=== PATIENT | female | born 2000 ===

== ENCOUNTER 2024-09-23 21:54 | Emergency (ER) | payer OTHER, SELFPAY ==
[2024-09-23 22:00] VITALS: BP 132/75; PULSE 98; RESP 16; TEMP 36.6; O2SAT 99; BMI 27.2
[2024-09-23] MEDS: ONDANSETRON 2 MG/ML inj 4 MG IVP (23:03)
--- OUTSIDE RECORDS SUMMARY | 2024-09-23 23:06 | XMS_ITS | Patient Health Record ---
Author Organization [facility] Address [address] [address] Support Name Relationship Address Phone LISA SHERWOOD Guarantor Unknown [phone] Reason For Referral No Information Problems Problem Type SNOMED Code ICD Code Onset Dates Problem Status W/U Status Risk Notes Problem Acute sinusitis (disorder) (42976116) Other acute sinusitis (J01.80) 11/11/2016 Active confirmed Plan Of Treatment No Information Insurance Providers Payer Name Payer Address Payer Phone Subscriber Number Group Number Insured Name Patient Relationship to Insured Coverage Start Date Coverage End Date [facility] [address] [address] [place] [id number] KRISTAL SHERWOOD Other
--- OUTSIDE RECORDS SUMMARY | 2024-09-23 23:06 | XMS_ITS | Clinical Summary ---
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 for Telephone Visit. Patient talking easily and coherently in full sentences with no labored breathing ASSESSMENT/PLAN: ICD-10-CM 1. Encounter for supervision of other normal , first trimester (HC) Z34.81 ANTI HIV 1/2 CBC W PLT NO DIFF HBSAG (HBS) ANTI HCV RUBELLA IMMUNE STATUS TREPONEMA PALLIDUM TYPE & SCREEN URINE CULTURE HEMOGLOBIN A1C US OB ANY TRI TV PRO-BNP BASIC METABOLIC PANEL MAGNESIUM TSH 2. Encounter for screening for uncertain dates (HC) Z36.87 3. Heart beat abnormality R00.9 AMB CONSULT TO PRIMARY CARE Patient's BMI 28. Recommended wt gain in lbs: 15-25. --Resources will be given to patient at next visit. Discussed Oxtex brina available for download to smart phone or tablet. --Reviewed topics including diet, exercise, caffeine intake, handling of cat litter, toxic substances, daily vitamins, safe medications, child classes, and regular exams. --Discussed genetic screening options - considering and advised to check coverage. --Discussed care with [facility] and [facility]. Plan to schedule ultrasound at 8 weeks and Initial OB visit with MD at 12 weeks gestation. She was encouraged to call the office with any questions or concerns. Hgb Electrophoresis is not ordered. Pt's ethnicity is / . Baseline preeclampsia labs are not indicated Medications: ASA for preeclampsia prophylaxis is not indicated Start 81 mg ASA daily at 12-28 weeks High Risk (if patient has any one of these risk factors) -none Moderate risk (consider if patient has several of these) -none Early a1c is indicated Early 1hr Glucose testing criteria Test to be completed between 10-16wks if BMI >25 or >23 in Americans AND have one or more of the following risk factors --High risk or ethnicity (, ) Dianna Echeverria NP .................... 08/01/2024 9:44 AM As the provider for this telephone service, I attest that I introduced myself to the patient, provided my credentials, disclosed my location, and determine that based on a review of the patient's chart and/or discussion with members of the patient's treatment team, a telephone visit is an appropriate and effective means of providing this service. The patient and I mutually agree that this visit is appropriate for the telephone as well. Originating site: Pt in [place] [facility] Telephone start time: 9:44 AM Telephone end time: 10:35 AM Last Filed Vital Signs Vital Sign Reading Time Taken Comments Blood Pressure 100/54 08/23/2024 10:55 AM CDT Pulse 80 08/23/2024 10:55 AM CDT Temperature 37.2 C (98.9 F) 06/26/2024 4:25 PM CDT Respiratory Rate 16 06/26/2024 4:25 PM CDT Oxygen Saturation 99% 08/23/2024 10:55 AM CDT Inhaled Oxygen Concentration - - Weight 77.1 kg (170 lb) 08/23/2024 10:55 AM CDT Height 162.6 cm (5' 4) 08/23/2024 10:55 AM CDT Body Mass Index 29.18 08/23/2024 10:55 AM CDT Plan of Treatment Upcoming Encounters Date Type Department Care Team (Late st Contact Info) Description 09/27/2024 9:00 AM CDT Office Visit [facility] Viviana [address] [facility] [address] [place] [id number] Evette Cummings PA [address] [facility] [address] [place] [id number] 09/29/2024 11:30 AM CDT OB Encounter [facility] [address] [facility] [address] [place] [address] Zachary Cuadra MD [address] [place] [address] 10/10/2024 11:30 AM CDT Telemedicine [facility] [address] [place], [place] [phone] [place] [address] [place] [address] Health Maintenance Due Date Last Done Comments HPV series for age 9-26 (2 - 3-dose series) 04/25/2020 03/28/2020 COVID-19 vaccine series ( - season) 2023 03/02/2023, 05/29/2020 Influenza Vaccine (#1) 2024 , 12/04/2021, 01/19/2021, Additional history exists RSV vaccine for adults or (1 - Risk 1-dose series) 01/26/2025 Depression screening for age 12+ 08/18/2025 08/18/2024, 06/21/2024, 05/24/2024, Additional history exists BMI (ht and wt on same day) for age 18+ 08/23/2025 08/23/2024, 06/16/2024, 03/30/2023, Additional history exists Pap test for age 21-65 11/06/2025 11/06/2022 Tetanus booster 02/18/2033 02/18/2023, 01/30, 08/13/2016, Additional history exists Hepatitis B series for 19+ Completed 04/05, 12/27/2018, 10/09/2016, Additional history exists HIV for age 15-65 Completed 10/23/2022, , 05/12/2018, Additional history exists Hepatitis C screening for age 18-79 Completed 10/23/2022, 2019, 11/04/2017 Pneumococcal series for age 6-49 Aged Out No longer eligible based on patient's age to complete this topic Procedures Procedure Name Priority Date/Time Associated Diagnosis Comments US OB ANY TRI TV Routine 08/18/2024 3:00 PM CDT Encounter for supervision of other normal , first trimester (HC) COVID/FLU/RSV PANEL Routine 06/26/2024 5 :05 PM CDT Sore throat STREP A PCR Routine 06/26/2024 4:32 PM CDT Sore throat THROAT RAPID STREP ONLY CLINIC Routine 06/26/2024 4:32 PM CDT Sore throat AUTOMATIC EDGER THIN PREP PAP SCREEN IMAGED Routine 11/06/2022 2:15 PM CDT Cervical cancer screening LC HIV-1/O/2, 4TH GENERATION Routine 10/23/2022 3:35 PM CDT Supervision of other normal , antepartum (HC) LC HCV ANTIBODY RFX TO QUANT PCR Routine 10/23/2022 3:35 PM CDT Supervision of other normal , antepartum (HC) from Last 3 Months or Most Recently Relevant to Health Maintenance Results * US OB ANY TRI TV (08/18/2024 3:00 PM CDT) Anatomical Region Laterality Modality , 2or 3 TRIMESTER, 1ST TRIMESTER Ultrasound Impressions 08/20/2024 11:32 AM CDT Flores intrauterine with cardiac activity. Ultrasound EDC is 03/27/25 with a gestational age of 8 weeks 3 days. No adnexal masses are seen. Leni Sullivan MD 08/20/2024 11:31 AM [facility] [address] [id number] Narrative 08/20/2024 11:32 AM CDT For Patients: Results are automatically released to your Face to Face Live (Sayah) account once available, in compliance with federal regulations. This means that you may see your results before your provider has had a chance to review them. Please allow 2-3 business days for your provider to comment on the results. Date of last menstrual period: 06/16/2024 with estimated date of confinement of 03/23/2025 and expected gestational age of 9 weeks 0 days. Early Ultrasound Date of exam: 08/18/2024 Indication for exam: Encounter for supervision of other normal , first trimester (HC) Requesting Provider: Dianna Echeverria NP TECHNIQUE: Transabdominal scan was not performed. Transvaginal scan was performed. FINDINGS: The uterus is normal size. The myometrium is homogeneous. There are no myomas noted. The right ovary is normal in appearance. The left ovary is normal in appearance. Free fluid in the cul de sac: none There is a single, intrauterine . The crown-rump length is 1.8 cm. These measurements correspond to a 8 week 3 day gestation with an EDC of 03/27/2025. The yolk sac is identified, appears normal, and measures 2 mm. heart activity is present with a rate of 160 beats per minute. Dianna Echeverria MOP WORKER US Final Result * COVID/FLU/RSV PANEL (06/26/2024 5:05 PM CDT) COVID 19 [employer] MOLECULAR Negative Negative 06/26/2024 11:16 PM CDT [facility] Comment:All PCR tests are fletcher bject to false negative result due to variability in viral load and collection technique. A negative result does not rule out a SARS-CoV-2 infection. Clinical correlation required. INFLUENZA A PCR Negative 11:16 PM CDT [facility] INFLUENZA B PCR Negative 11:16 PM CDT [facility] Respiratory Syncytial Virus Negative 06/26/2024 11:16 PM CDT [facility] Swab NASOPHARYNGEAL SWAB / Unknown Non-Blood / Unknown 06/26/2024 5:05 PM CDT 06/26/2024 5:05 PM CDT Roque Vela MD MICROBIOLOGY Final Resul t Performing Organization Address City/[facility]/ZIP Co de Phone Number [facility] [address] [place] [address], [place] * STREP A PCR (06/26/2024 4:32 PM CDT) Pathologist [facility] GROUP A STREP Negative 06/27/2024 12:19 AM CDT [facility] Throat SPECIMEN FROM THROAT / Unknown Non-Blood / Unknown 06/26/2024 4:32 PM CDT 06/26/2024 4:32 PM CDT Roque Vela MD MICROBIOLOGY Final Resul t Performing Organization Address [facility] Co de Phone Number [facility] [address] [place] [address], [place] * POCT Throat Rapid Strep (06/26/2024 4:32 PM CDT) Pathologist [facility] POC, GROUP A STREP NOT DETECTED NOT DETECTED [facility] ( Comment: The [place] [employer] Pediatric[employer] recommends that a throat culture be performed if a rapid group A streptococcus assay yields a negative result. [employer] recommends Streptococcus, Group A culture. Throat SPECIMEN FROM THROAT / Unknown 06/26/2024 4:32 PM CDT 06/26/2024 4:33 PM CDT Roque Vela MD MICROBIOLOGY Final Resul t Performing Organization Address City/[facility] Co de Phone Number [facility] [address] [place] [address], [place] [facility] ( [address] [place] [address] * AUTOMATIC EDGER THIN PREP PAP SCREEN IMAGED (11/06/2022 2:15 PM CDT) Pathologist [facility] Case Report Gynecologic Cytology Report Case: [id number] Authorizing Provider: Zachary Cuadra Collected: 11/06/2022 Jermaine Rojas MD Ordering Location: [facility] Received: 11/06/2022 1520 First Screen: Yasir Warner Specimen: AUTOMATIC EDGER ThinPrep Vial Screening, Cervical 11/11/2022 12:52 PM CDT [facility] [employer] [facility] INTERPRETATION/ RESULT NEGATIVE FOR INTRAEPITHELIAL LESION OR MALIGNANCY (NIL) (none) 11/11/2022 12:52 PM CDT [facility] [employer] [facility] at 1252 CDT SPECIMEN ADEQUACY Satisfactory for evaluation Endocervical component present 11/11/2022 12:52 PM CDT [facility] Date of LMP N/A 11/11/2022 12:52 PM CDT [facility] [employer] [facility] Last Pap Date N/A 11/11/2022 12:52 PM CDT [facility] [employer] LABORATORY-[facility] ENTRAL LABORATORY Last Pap Result First Pap/Unknown 12:52 PM CDT [facility] [employer] [facility] Abnormal Pap or [place] Bx in last 5 years No 11/11/2022 12:52 PM CDT [facility] [employer] [facility] Menstrual Status 11/11/2022 12:52 PM CDT [facility] [employer] [facility] EN[facility]AL [facility] [place] Bx Done Today No 11/11/2022 12:52 PM CDT [facility] [employer] [facility] EN[facility] Additional Information None given 11/11/2022 12:52 PM CDT [facility] [employer] [facility] Comment: Cytology is screened at [facility], Central Laboratory - [address], [place] [address] and [facility] - [address], [place] [address] and [facility] - [address] [place] [address] Interpreted at [facility] [employer] [facility], Central Laboratory - [address], [place] [address] Automated Review Successful 11/11/2022 12:52 PM CDT [facility] [employer] [facility] EN[facility] Comment:Specimen processed s uccessfully by automated prospect manager device, ThinPrep Imaging System, [employer] Note The pap test is a screening technique, not a diagnostic procedure. It is used primarily to screen for squamous cancers and precursor lesions. Published studies have shown that it is subject to both false negative and false positive results. The pap test should not be used as the sole means to diagnose or exclude pre-malignant and malignant lesions. 11/11/2022 12:52 PM CDT [facility]-C ENTRAL LABORATORY Other (Cervical) Non-Blood / Unknown 11/06/2022 2:15 PM CDT 11/06/2022 3:20 PM CDT Zachary Cuadra MD PATHOLOGY/CYTOLO GY Final Result [facility] [address] [place] [address], [place] * LC HCV ANTIBODY RFX TO QUANT PCR (10/23/2022 3:35 PM CDT) HCV Ab Non Reactive Non Reactive 10/27/2022 11:10 AM CDT [facility] ([facility]) Blood BLOOD SPECIMEN / Unknown Venipuncture / Unknown 10/23/2022 3:35 PM CDT 10/23/2022 3:40 PM CDT Narrative [facility] ([facility]) - 10/27/2022 11:10 AM CDT Performed at: [address] [place] [id number] Cathode Ray Tube Assembler: Dwayne Christopher MD, Phone: [phone] us Mary Esposito NP LABORATORY Final Res ult [facility] ([facility]) [address] [place] [address], * LC HIV-1/O/2, 4TH GENERATION (10/23/2022 3:35 PM CDT) HIV Scr 4th Gen Non Reactive Non Reactive 10/27/2022 10:06 PM CDT [facility] ([facility]) Comment: HIV Negative HIV-1/HIV-2 antibodies and HIV-1 p24 antigen were NOT detected. There is no laboratory evidence of HIV infection. Blood BLOOD SPECIMEN / Unknown Venipuncture / Unknown 10/23/2022 3:35 PM CDT 10/23/2022 3:40 PM CDT Narrative [facility] ([facility]) - 10/27/2022 10:06 PM CDT Performed at: [address] [id number] Cathode Ray Tube Assembler: Dwayne Christopher MD, Phone: [phone] us Mary Esposito NP LABORATORY Final Res ult [facility] ([facility]) [facility] [place] [address], from Last 3 Months or Most Recently Relevant to Health Maintenance Insurance [facility] PRIME Advance Directives * Full Code (Latest Code Status on File) Date Activated Date Inactivated Comments 04/22/2023 5:47 PM 04/24/2023 5:25 PM Question Answer Comments Code Status Discussion: Not Discussed * Full Code Date Activated Date Inactivated Comments 05/11/2018 11:45 PM 05/14/2018 4:31 PM Care Teams It Application Support Analyst Relationship Specialty Start [place] [address] [place] [address] PCP - General Physician [facility] Steward 05/14/20
--- OUTSIDE RECORDS SUMMARY | 2024-09-23 23:06 | XMS_ITS | Clinical Summary ---
Author Organization [facility] Address [address] [place] [address] Care Team Providers Care Special Duty Nurse Name Role Phone Unavailable Primary Care Provider Unavailabl e Allergies No known active allergies Medications buPROPion XL (Wellbutrin XL) 150 mg 24 hr tablet Take 150 mg by mouth in the morning. 08/06/2022 Active FLUoxetine (PROzac) 40 mg capsule Take 80 mg by mouth in the morning. 08/06/2022 Active LORazepam (Ativan) 0.5 mg tablet Take by mouth if needed in the morning and at bedtime. 08/06/2022 Active omeprazole OTC (PriLOSEC OTC) 20 mg EC tablet Take 20 mg by mouth in the morning. 08/06/2022 Active albuterol 90 mcg/actuation inhalerIndicatio ns:Acute bronchitis, unspecified organism Inhale 2 puffs every 4 (four) hours if needed for wheezing. 6.7 g 1 01/30/2023 Active Active Problems Problem Noted Date Diagnosed Date Anxiety and depression 06/23/2019 Insomnia, idiopathic 06/23/2019 Social History Tobacco Use Types Packs/Day Years Used Date Smoking Tobacco: Former Cigarettes Smokeless Tobacco: Never Tobacco Cessation:Counseling Given: Not Answered Comments Unknown Sex and Gender Information Value Date Recorded Sex Assigned at Not on file Legal Sex Female 7:03 PM CDT Gender Identity Not on file Sexual Orientation Not on file Plan of Treatment Health Maintenance Due Date Last Done Comments RSV Vaccines (1 - 1-dose 75+ series) 2074 Pneumococcal Vaccine: Pediat rics (0 to 5 Years) and At-Risk Patients (6 to 49 Years) Aged Out No longer eligi ble based on patient's age to complete this topic
--- NOTE | 2024-09-23 23:56 | ED_ITS ---
HPI - General Adult General Date Seen: 09/23/24 <Dianna Coleman MD - Last Filed: 09/25/24 16:06> Chief complaint: Headache/Migraine <Dianna Coleman MD - Last Filed: 09/25/24 16:06> Stated complaint: 14wks , migraine <Dianna Coleman MD - Last Filed: 09/25/24 16:06> Time Seen by Provider: 09/23/24 21:55 <Dianna Coleman MD - Last Filed: 09/25/24 16:06> History of Present Illness HPI narrative: Patient is a 24-year-old here for evaluation of headache and vomiting. She is 14 weeks . Her life has been complicated over the past few weeks because her was diagnosed with an enterovirus infection, was hospitalized with pneumonia and meningitis for a couple of weeks. He got home from the hospital about a week ago. She says she has always had a lot of problems with nausea and vomiting in her pregnancies, had started to feel better though over the past couple of weeks until yesterday when she started to have more vomiting again. Today she developed a headache which is frontal, has been worsening throughout the day, associated with photophobia and phonophobia. She does not typically get headaches. She has not had any fevers, does not have neck pain or stiffness and has not had any unusual rashes. She is constipated, has not had any diarrhea. This is her 3rd , she notes that she has been told occasionally her blood pressures are high with her previous pregnancies but it has always resolved without incident. <Dianna Coleman MD - Last Filed: 09/25/24 16:06> Related Data Home medications: Home Medications ?Medication ?Instructions ?Recorded ?Confirmed fluoxetine 20 mg capsule 20 mg PO DAILY 09/23/2408/30 hydroxyzine pamoate 25 mg capsule 25 mg PO Q6-8H PRN 0 09/23/24 09/23/24 ondansetron HCl 4 mg tablet 4 mg PO Q6-8H PRN 09/23/24 09/23/24 Previous Rx's ?Medication ?Instructions ?Recorded acyclovir 800 mg tablet 800 mg PO 5XD 10 days #50 ta bs 09/24/24 <Dianna Coleman MD - Last Filed: 09/25/24 16:06> Allergies/adverse reactions: Allergies Allergy/AdvReac Type Severity Reaction Status Date / Time No Known Drug Allergies Allergy Verified 09/23/24 22:05 <Dianna Coleman MD - Last Filed: 09/25/24 16:06> Review of Systems Status of ROS: Reports: 6 or more systems reviewed and unremarkable except as noted in History and below <Dianna Coleman MD - Last Filed: 09/25/24 16:06> [facility] Social History: Social History Smoking Status: Former smoker How often do you have a drink containing alcohol: never How often do you have six or more drinks on one occasion: Never AUDIT-C Alcohol total score: 0 Non-prescribed substance use: denies use and former substance user <Dianna Coleman MD - Last Filed: 09/25/24 16:06> Exam Narrative: Exam Narrative: Vital signs reviewed In general, alert, nontoxic young woman. She is sitting in a darkened room. Head: Normocephalic, atraumatic. Eyes: Sclera clear. Pupils equal and reactive. ENT: Mucous membranes moist. Neck: She moves her neck without any difficulty, completely supple on exam without any meningeal signs. Heart: Regular rate and rhythm without murmur. Lungs: Clear. No increased work of breathing, crackles or wheezes. Abdomen: Soft, nontender to palpation. Extremities: Well perfused, pulses intact. No significant edema. Neurologic: Alert, conversant. Speech fluent, face symmetric. Moves all extremities equally. Skin: Warm, dry well perfused. Affect: Normal. <Dianna Coleman MD - Last Filed: 09/25/24 16:06> Const: Vital Signs, click to edit/add: Vital Signs - 24 hr 09/23/24 22:00 09/24/24 00:40 Temperature 97.8 F Pulse Rate [Pulse Oximeter] 98 98 Respiratory Rate 16 16 Blood Pressure [Ri ght Upper Arm] 132/75 118/75 Pulse Oximetry 99 100 Oxygen Delivery Me thod Room Air Room Air <Dianna Coleman MD - Last Filed: 09/25/24 16:06> Vital Signs, click to edit/add: Vital Signs - 24 hr 09/23/24 22:00 09/24/24 00:40 Temperature 97.8 F Pulse Rate [Pulse Oximeter] 98 98 Respiratory Rate 16 16 Blood Pressure [Ri ght Upper Arm] 132/75 118/75 Pulse Oximetry 99 100 Oxygen Delivery Me thod Room Air Room Air <Chary Roque MD - Last Filed: 09/24/24 01:38> Course Course ED Course: Patient presents with a headache with some migraine-type features although she does not have a prior history of migraine. Overall there are no concerning features of this headache in terms of nuchal rigidity, fevers, thunderclap headache etc.. Her history is complicated somewhat by this recent illness that her had. She notes that her symptoms seem to be quite a bit different, he had a lot of neck pain and did not want to move his head around, and she notes that she does not have anything like that. She feels like her headache is probably related to dehydration because of the vomiting she has been having. She tried taking Zofran at home but was unable to keep it down. She is very well-appearing. She does not feel that lumbar puncture is a test that she would want to proceed with tonight based on how she is feeling currently. To start, will give her some fluids, I ordered initially Zofran and a little bit of morphine, but she does have a substance abuse history and declined that. I have ordered Benadryl instead. Will reassess and see how she is feeling after medication. She had improvement in her nausea but continues to have significant headache. We talked about pain management, she really would like to avoid anything habit forming and I certainly understand that. She has a history of significant substance use ending at age 14 and has a history of drug abuse in her mother. I gave her IV Tylenol as well as Compazine after consultation with OB Gyne. Also discussed with her that Toradol while not considered safe later in is a reasonable thing to add if that does not help given that she is fairly early in . Ob did not feel that that was an unreasonable choice if needed. Given that were needing to add additional pain medication I did recommend that we just check some labs, again I do not see any red flags on her exam to suggest a serious cause for this headache, and I believe it is likely migrainous perhaps exacerbated by dehydration and vomiting, he but given her 's recent illness and severity of symptoms I recommended that we check some labs. If these are markedly abnormal we may want to pursue other evaluation otherwise would plan to discharge home with follow-up. Labs and final disposition signed out to oncoming physician. <Dianna Coleman MD - Last Filed: 09/25/24 16:06> Reevaluation(s) Time of Reevaluation #1: 01:30 <Chary Roque MD - Last Filed: 09/24/24 01:38> Reevaluation #1: Dr. Roque- Counseled patient on findings. Labs are reassuring. Compazine helped a little bit. I strongly recommended that we go ahead and do the Toradol. Rationale discussed, safety in the 2nd trimester discussed with patient. There are no other red flags. She still is not had a fever or any neurological changes. We discussed home management, she would like to go home. Prescriptions provided for Flexeril 5-10 mg at bedtime p.r.n. for headache that prevents sleep. Counseled that the most important thing she should use is Tylenol a 1000 mg every 6 hours. We also discussed efficacy and safety of Toradol for just the next few weeks in . Small prescription provided. I stressed the importance that this is not safe for the entire and should only be used for the next few weeks if needed. Any further clarification should come from her obstetrical provider and I recommended that she follow-up in the next few days to discuss treatment plan and long-term plan if she gets more of these similar headaches. Alarm symptoms reviewed that would warrant ED presentation, such as neurological changes, high fever, etc.. She verbalizes understanding and agreement. <Chary Roqeu MD - Last Filed: 09/24/24 01:38> Vital Signs Vital signs: Initial Vital Signs Temperature 97.8 F 09/23/24 22:00 Temperature Source Temporal Artery Scan 09/23/24 22:00 Pulse Rate 98 09/23/24 22:00 Respiratory Rate 16 09/23/24 22:00 Blood Pressure 132/75 09/23/24 22:00 Blood Pressure Mean 94 09/23/24 22:00 Blood Pressure Position Sitting 09/23/24 22:00 Pulse Oximetry 99 09/23/24 22:00 Oxygen Delivery Method Room Air 07/26/25 22:00 Vital Signs Temperature 97.8 F 09/23/24 22:00 Pulse Rate 98 09/23/24 22:00 Respiratory Rate 16 09/23/24 22:00 Blood Pressure 132/75 09/23/24 22:00 Pulse Oximetry 99 09/23/24 22:00 Oxygen Delivery Method Room Air 09/23/24 22:00 Temperature 97.8 F 09/23/24 22:00 Pulse Rate 98 09/24/24 00:40 Respiratory Rate 16 09/24/24 00:40 Blood Pressure 118/75 09/24/24 00:40 Pulse Oximetry 100 09/24/24 00:40 Oxygen Delivery Method Room Air 09/24/24 00:40 <Dianna Coleman MD - Last Filed: 09/25/24 16:06> Initial Vital Signs Temperature 97.8 F 09/23/24 22:00 Temperature Source Temporal Artery Scan 09/23/24 22:00 Pulse Rate 98 09/23/24 22:00 Respiratory Rate 16 09/23/24 22:00 Blood Pressure 132/75 09/23/24 22:00 Blood Pressure Mean 94 09/23/24 22:00 Blood Pressure Position Sitting 09/23/24 22:00 Pulse Oximetry 99 09/23/24 22:00 Oxygen Delivery Method Room Air 09/23/24 22:00 Vital Signs Temperature 97.8 F 09/23/24 22:00 Pulse Rate 98 09/23/24 22:00 Respiratory Rate 16 09/23/24 22:00 Blood Pressure 132/75 09/23/24 22:00 Pulse Oximetry 99 09/23/24 22:00 Oxygen Delivery Method Room Air 09/23/24 22:00 Temperature 97.8 F 09/23/24 22:00 Pulse Rate 98 09/24/24 00:40 Respiratory Rate 16 09/24/24 00:40 Blood Pressure 118/75 09/24/24 00:40 Pulse Oximetry 100 09/24/24 00:40 Oxygen Delivery Method Room Air 09/24/24 00:40 <Chary Roque MD - Last Filed: 09/24/24 01:38> Medications Administered Medications: Discontinued Medications Generic Name Dose Route Start Last Admin Trade Name Freq PRN Reason Stop Dose Admin Diphenhydramine HCl 25 mg 09/23/24 23:09 09/23/24 23:14 Diphenhydramine 50 Mg/Ml Inj IVP 09/23/24 23:10 25 mg ONCE ONE Administration Sodium Chloride 1,000 mls @ 1,000 mls/hr 09/23/24 23:00 09/24/24 00:00 0.9 % Sodium Chloride 1000 Ml IV 09/23/24 23:59 Infused .Q1H AMBER Infusion Acetaminophen 1,000 mg in 100 mls @ 400 mls/hr 09/24/24 00:24 09/24/24 00:52 Acetaminophen Inj IVPB 09/24/24 00:38 Infused ONCE ONE Infusion Ketorolac Tromethamine 15 mg 09/24/24 01:30 09/24/24 01:35 Ketorolac 15 Mg/Ml Inj IVP 09/24/24 01:31 15 mg ONCE ONE Administration Morphine Sulfate 4 mg 09/23/24 22:53 09/23/24 23:11 Morphine 4 Mg/Ml Inj IVP 09/23/24 22:54 Not Given ONCE ONE Ondansetron HCl 4 mg 09/23/24 22:53 09/23/24 23:03 Ondansetron 2 Mg/Ml Inj IVP 09/23/24 22:54 4 mg ONCE ONE Administration Prochlorperazine 5 mg 09/24/24 00:26 09/24/24 01:17 Prochlorperazine 5 Mg/Ml Vial IVP 09/24/24 00:27 5 mg ONCE ONE Administration <Dianna Coleman MD - Last Filed: 09/25/24 16:06> Discontinued Medications Generic Name Dose Route Start Last Admin Trade Name Robiq PRN Reason Stop Dose Admin Diphenhydramine HCl 25 mg 09/23/24 23:09 09/23/24 23:14 Diphenhydramine 50 Mg/Ml Inj IVP 09/23/24 23:10 25 mg ONCE ONE Administration Sodium Chloride 1,000 mls @ 1,000 mls/hr 09/23/24 23:00 09/24/24 00:00 0.9 % Sodium Chloride 1000 Ml IV 09/23/24 23:59 Infused .Q1H AMBER Infusion Acetaminophen 1,000 mg in 100 mls @ 400 mls/hr 09/24/24 00:24 09/24/24 00:52 Acetaminophen Inj IVPB 09/24/24 00:38 Infused ONCE ONE Infusion Ketorolac Tromethamine 15 mg 09/24/24 01:30 09/24/24 01:35 Ketorolac 15 Mg/Ml Inj IVP 09/24/24 01:31 15 mg ONCE ONE Administration Morphine Sulfate 4 mg 09/23/24 22:53 09/23/24 23:11 Morphine 4 Mg/Ml Inj IVP 09/23/24 22:54 Not Given ONCE ONE Ondansetron HCl 4 mg 09/23/24 22:53 09/23/24 23:03 Ondansetron 2 Mg/Ml Inj IVP 09/23/24 22:54 4 mg ONCE ONE Administration Prochlorperazine 5 mg 09/24/24 00:26 09/24/24 01:17 Prochlorperazine 5 Mg/Ml Vial IVP 09/24/24 00:27 5 mg ONCE ONE Administration <Chary Roque MD - Last Filed: 09/24/24 01:38> Medical Decision Making Lab Data Lab results reviewed: Yes I reviewed the patient's lab results <Chary Roque MD - Last Filed: 09/24/24 01:38> Lab results narrative: Labs all reassuring. <Chary Roque MD - Last Filed: 09/24/24 01:38> Labs: Lab Results 09/23/24 09/24/24 09/24/24 Range/Units 22:20 00:45 00:51 WBC 10.48 (4.50-11.00) K/uL RBC 4.74 (4.00-5.20) m/uL Hgb 14.2 (12.0-16.0) gm/dL Hct 39.8 (33.0-51.0) % MCV 84 (80-100) fL MCH 30 (26-34) pg MCHC 36 (32-36) gm/dL RDW Coeff of [place] 12.2 (11.5-15.5) % Plt Count 214 (140-440) K/uL Neut % (Auto) 78.1 H (42.0-72.0) % Lymph % (Auto) 14.8 L (20-44) % [place] % (Auto) 4.3 (0.0-11.0) % Eos % (Auto) 1.4 (0.0-7.0) % Baso % (Auto) 0.3 (0.0-3.0) % Neut # (Auto) 8.20 H (1.7-7.0) K/uL Lymph # (Auto) 1.60 (0.90-2.90) K/uL [place] # (Auto) 0.50 (0.00-0.90) K/UL Eos # (Auto) 0.15 (0.00-0.50) K/uL Baso # (Auto) 0.03 (0.00-0.30) K/uL Abs Immat Gran (auto) 0.12 (0.00-0.30) K/uL Imm/Tot Granulo (auto) 1.1 % D-Dimer Quant (PE/DVT) < 0.27 (0.00-0.50) ug/ml Sodium 138 (135-149) mmol/L Potassium 3.4 L (3.6-5.1) mmol/L Chloride 109 (96-114) mmol/L Carbon Dioxide 22 (20-32) mmol/L Anion Gap 7 (7-15) mEq/L BUN 7 (5-24) mg/dL Creatinine 0.7 (0.5-1.5) mg/dL Estimated Creat Clear 110.55 Estimated GFR 123 ml/min Glucose 86 (60-115) mg/dL Lactate 0.9 (0.5-1.9) mmol/L Calcium 9.3 (8.4-10.6) mg/dL C-Reactive Protein < 0.5 L (0.5-1.0) mg/dL <Dianna Coleman MD - Last Filed: 09/25/24 16:06> Lab Results 09/23/24 09/24/24 09/24/24 Range/Units 22:20 00:45 00:51 WBC 10.48 (4.50-11.00) K/uL RBC 4.74 (4.00-5.20) m/uL Hgb 14.2 (12.0-16.0) gm/dL Hct 39.8 (33.0-51.0) % MCV 84 (80-100) fL MCH 30 (26-34) pg MCHC 36 (32-36) gm/dL RDW Coeff of [place] 12.2 (11.5-15.5) % Plt Count 214 (140-440) K/uL Neut % (Auto) 78.1 H (42.0-72.0) % Lymph % (Auto) 14.8 L (20-44) % [place] % (Auto) 4.3 (0.0-11.0) % Eos % (Auto) 1.4 (0.0-7.0) % Baso % (Auto) 0.3 (0.0-3.0) % Neut # (Auto) 8.20 H (1.7-7.0) K/uL Lymph # (Auto) 1.60 (0.90-2.90) K/uL [place] # (Auto) 0.50 (0.00-0.90) K/UL Eos # (Auto) 0.15 (0.00-0.50) K/uL Baso # (Auto) 0.03 (0.00-0.30) K/uL Abs Immat Gran (auto) 0.12 (0.00-0.30) K/uL Imm/Tot Granulo (auto) 1.1 % D-Dimer Quant (PE/DVT) < 0.27 (0.00-0.50) ug/ml Sodium 138 (135-149) mmol/L Potassium 3.4 L (3.6-5.1) mmol/L Chloride 109 (96-114) mmol/L Carbon Dioxide 22 (20-32) mmol/L Anion Gap 7 (7-15) mEq/L BUN 7 (5-24) mg/dL Creatinine 0.7 (0.5-1.5) mg/dL Estimated Creat Clear 110.55 Estimated GFR 123 ml/min Glucose 86 (60-115) mg/dL Lactate 0.9 (0.5-1.9) mmol/L Calcium 9.3 (8.4-10.6) mg/dL C-Reactive Protein < 0.5 L (0.5-1.0) mg/dL <Chary Roque MD - Last Filed: 09/24/24 01:38> Discharge Plan Discharge Clinical Impression: Migraine <Dianna Coleman MD - Last Filed: 09/25/24 16:06> Patient Disposition: Home, Self-Care <Dianna Coleman MD - Last Filed: 09/25/24 16:06> Instructions: Migraine Headache (ED) <Dianna Coleman MD - Last Filed: 09/25/24 16:06> Additional Instructions: As we discussed, your labs look okay. There are no signs of severe infection. I do agree with Dr. Coleman, this seems like a migraine. There may be additional treatment options if you keep having these types of headaches. Please follow-up with your Ob provider in team on Wednesday if you are still symptomatic. I have provided you with 2 prescriptions, the 1st is cyclobenzaprine, a muscle relaxant. It will make you drowsy. You may take this when you get home if the headache is still very bothersome. I would recommend that you try a half of a pill which would be 5 mg and if symptoms are not improving after an hour, you may take the 2nd half. Try to just use this at bedtime, as it does cause quite a bit of sedation. This is safe to use the entire . Tylenol 1000 mg every 6 hours would be the safest thing for you to take in . Since you are in the 2nd trimester, you could use Toradol sparingly, but only for the next few weeks in . I will provide you with a small prescription for this. Remember not to take this after about 18 weeks of . Use it sparingly if the headache is very bothersome. I would recommend that you take another dose at about 8:00 a.m. today, and then hopefully things have relieved enough to keep you comfortable. If you have significant neurological changes, stroke-like symptoms, high fever or other unexpected changes, please return to the ED promptly. <Dianna Coleman MD - Last Filed: 09/25/24 16:06> Activity Level: Activity as Tolerated <Dianna Coleman MD - Last Filed: 09/25/24 16:06> Activity as Tolerated <Chary Roque MD - Last Filed: 09/24/24 01:38> Discharge Diet: Regular <Dianna Coleman MD - Last Filed: 09/25/24 16:06> Regular <Chary Roque MD - Last Filed: 09/24/24 01:38> Prescriptions: No Action fluoxetine 20 mg capsule 20 mg PO DAILY hydroxyzine pamoate 25 mg capsule 25 mg PO Q6-8H PRN ondansetron HCl 4 mg tablet 4 mg PO Q6-8H PRN acyclovir 800 mg tablet 800 mg PO 5XD 10 Days Qty: 50 0RF Rx Instructions: space evenly during waking hours <Dianna Coleman MD - Last Filed: 09/25/24 16:06> Follow Up/Referrals: Luis Miguel Livingston PA-C [Primary Care Provider, Family Practice] <Dianna Coleman MD - Last Filed: 09/25/24 16:06> Stand Alone Forms: MyHealth Info Instructions <Dianna Coleman MD - Last Filed: 09/25/24 16:06>
[2024-09-24 00:35] LABS: Hematocrit 39.8 % (33.0-51.0); Hemoglobin* 14.2 gm/dL (12.0-16.0); Immature Granulocytes Abs Auto 0.12 K/uL (0.00-0.30); Immature Granulocytes Pct Auto 1.1 %; Mean Corpuscular HGB Conc 36 gm/dL (32-36); Mean Corpuscular Hemoglobin 30 pg (26-34); Mean Corpuscular Volume 84 fL (80-100); RDW Coefficient of Variation % 12.2 % (11.5-15.5); Red Blood Count 4.74 m/uL (4.00-5.20); White Blood Count* 10.48 K/uL (4.50-11.00)
[2024-09-24] MEDS: ACETAMINOPHEN INJ 1,000 MG/100 ML VIAL 400 MG IVPB (00:37)
[2024-09-24 00:38] LABS: Lymphocytes Absolute Auto 1.60 K/uL (0.90-2.90); Slide Review Reflex No
[2024-09-24 00:40] VITALS: BP 118/75; PULSE 98; RESP 16; O2SAT 100
[2024-09-24 00:51] LABS: Chloride* 109 mmol/L (96-114); Potassium* 3.4 mmol/L (3.6-5.1); Sodium* 138 mmol/L (135-149)
[2024-09-24 00:55] LABS: Anion Gap 7 mEq/L (7-15); Blood Urea Nitrogen* 7 mg/dL (5-24); Calcium* 9.3 mg/dL (8.4-10.6); Carbon Dioxide* 22 mmol/L (20-32); Creatinine* 0.7 mg/dL (0.5-1.5); Est. Creatinine Clearance* 110.55; Estimated Glomerular Filt Rate 123 ml/min; Glucose* 86 mg/dL (60-115)
[2024-09-24 00:56] LABS: Lactate Sepsis w/Reflex* 0.9 mmol/L (0.5-1.9)
[2024-09-24] MEDS: PROCHLORPERAZINE 5 MG/ML VIAL IVP (01:17)
[2024-09-24 01:20] LABS: D Dimer Quantitative* < 0.27 ug/ml (0.00-0.50)
== END 2024-09-24 01:58 | disposition home or self-care (01) ==
PROVIDERS: Emergency Medicine; Emergency Provider Family Medicine; PCP Physician Assistant Medical
DX: G43.909 Migraine, unspecified, not intractable, without status migrainosus (principal); Z3A.14 14 weeks gestation of pregnancy
CPT/HCPCS: 36415; 80048; 83605; 85025; 85379; 86140; 96365; 96375; 99284; J0131; J0780; J1200; J1885; J2405; J7030

== ENCOUNTER 2024-09-24 13:12 | Emergency (ER) | payer OTHER, SELFPAY ==
[2024-09-24] VITALS (15 sets, daily range): BP systolic 93–117; BP diastolic 45–70; PULSE 61–103; RESP 16–20; TEMP 36.7–37.8; O2SAT 96–100; BMI 27.1
--- OUTSIDE RECORDS SUMMARY | 2024-09-24 13:14 | XMS_ITS | Clinical Summary ---
Author Organization [facility] Address [address] [place] [address] Care Team Providers [employer] Forms Name Role Phone Unavailable Primary Care Provider [...]
--- OUTSIDE RECORDS SUMMARY | 2024-09-24 13:14 | XMS_ITS | Patient Health Record ---
Author Organization [facility] Address [address] [address] Support Name Relationship Address Phone LISA SHERWOOD Guarantor Unknown [phone] Reason For Referral No Information Problems Problem Type SNOMED Code ICD Code Onset Dates Problem Status W/U Status Risk Notes Problem Acute sinusitis (disorder) (21447388) Other acute sinusitis (J01.80) 11/11/2016 Active confirmed Plan Of Treatment No Information Insurance Providers Payer Name Payer Address Payer Phone Subscriber Number Group Number Insured Name Patient Relationship to Insured Coverage Start Date Coverage End Date [facility] [address] [address] [place] [id number] KRISTAL SHERWOOD Other
--- OUTSIDE RECORDS SUMMARY | 2024-09-24 13:14 | XMS_ITS | Clinical Summary ---
Author Organization [facility] Address [address] [place] [address] Care Team Providers Care Java Websphere Developer Name Role Phone Luis Miguel Livingston Primary [...] anxiety. 90 Tablet 07/20/19 25 Active PNV Cmb#[id number] Acid 14 mg iron- 400 mcg tab [...] by her dad. Pt was born premature. [employer] Environmental alerting pt she has been in Afib since . New cardiovascular symptoms in (ex: tachycardia, palpitations, shortness of breath) and no prior diagnosis of underlying cardiac disease: Afib on GB Environmental. Initial work up recommended by AURY (tailored to the chief complaint): Refer patient to [facility] (second floor [address]) [x] Place amb consult to IM- write OB cardiac consult with details in comments; also send staff message to Terry SARAVIA UNIVERSITY REGISTRAR STAFF and Yolanda SARAVIA STAFF MDs and use dotOBCARIOIMREFER to convey concern [x ] [facility] RN notified to call [facility] clinic and arrange appt for patient within one week Scheduled 08/16/24 [ ] Labs: ProBNP, BMP, magnesium, TSH If above workup is normal, consider: refer to general cardiology or general MFM (AMB CONSULT to Cardiology, or to Maternal Medicine) If any above workup is abnormal- [facility] doc will place MFM referral and also notify [facility] provider(AMB CONSULT to Maternal Medicine, put CVOB [...] Encounters Date Type Department Care Team Description 09/24/2024 Nurse Triage [facility] [address] [place] [address] Phoebe Silveira NP Problem 09/23/2024 Nurse Triage [facility] [address] [facility] [address] [place] [address] Phoebe Silveira NP Problem; Headache 09/10/2024 Telephone [facility] [place] [address] [facility] [address] [place] [phone] Luis Miguel Livingston PA Appointment (No Show) 09/08/2024 Telephone [facility] [address] [address] Zachary Cuadra MD Appointment 08/23/2024 10:50 AM CDT Office Visit [facility] [place] [address] [facility] [address] [place] [phone] Deric Rasheed MD Sleep Consult (sleep/snoring /sleep difficulties/take 3-4 hours to fall asleep//) 08/23/2024 Travel 08/18/2024 3:15 PM CDT Phone OB Encounter [facility] [address] [place] [address] Phoebe Silveira NP Care (9w0d) 08/18/2024 2:30 PM CDT Ancillary Procedure [facility] [address] [address] 08/18/2024 8:30 AM CDT [facility]medicine [facility] [address] [place] [address] Daniela Edwards DO Telehealth; Follow Up; Medication Management 08/18/2024 Travel 08/04/2024 3:00 PM CDT Office Visit [facility] [address] [place] [address] [place] 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 Exam (Nausea ) 08/04/2024 Travel 08/04/2024 Telephone [facility] [address] [facility] [address] [place] [address] Dianna Echeverria NP Error-please disregard 08/04/2024 Nurse Triage [facility] [address] [facility] [address] [place] [address] Phoebe Silveira NP Nausea; Vomiting 08/01/2024 9:30 AM CDT Phone OB Encounter [facility] [address] [facility] [address] [place] [address] Dianna Echeverria NP Care (OB Intake) 08/01/2024 Telephone [facility] [address] [facility] [address] [place] [address] Dianna Echeverria NP Appointment (8 week US and follow up visit ) 08/01/2024 Travel 07/27/2024 12:40 PM CDT Telemedicine [facility] [address] [place] [address] Aren Delaney PA URI 07/21/2024 Telephone [facility] [address] [facility] [address] [place] [address] Zachary Cuadra MD Lab 07/21/[address] [facility] [address] [place] [address] Luis Miguel Livingston PA Testing; sleep study recommended by Psychiatry 07/19/2024 7:30 AM CDT Telemedicine [facility] [address] [place] [address] Daniela Edwards DO Telehealth; Medication Management (Will completes questionnaires when checking in before appt) 07/19/2024 E-Consult [facility] [address] [facility] [address] [place] [address] Meenu Patten MD 07/19/2024 Travel 06/26/2024 4:20 PM CDT Office Visit [email or web address] [address] [facility] [address] [place] [address] Roque Vela MD Throat Problem 06/26/2024 Travel [...] No Known Problems Paternal Grandmother Other Sister COMMERCIAL ACCOUNT MANAGER & urinary i ssues Relation Name Status [...] MCDONA LD,BG [place] Bod[place] r Delivery Location:[facility] ([address] 2023 Term 38w 1d 0h 03m 0h 03m 3.84 kg (8 lb 7.5 oz) M Vag-S pont Epidur al Livin g 8 9 Elijah gooden, Candice Hinton MD Complications:None Delivery Location:[facility] ( [address]) Current Summary Episode Dates Number of Fetuses Estimated Date of Delivery 08/01/2024 - Present (09/24/2024) 03/23/2025 (set by Kaylynn De Anda MA on 08/01/2024 based on Last Menstrual Period on 06/16/2024 (Exact Date)) Dating Summary Based On TA GA Diff Last Menstrual Period on 06/16/2024 (Exact Date) 03/23/2025 Working Ultrasound on 08/18/2024 03/27/2025 -4d GA:8w3d Vitals Pregravid Weight Height TWG (As of 09/24/2024) Pregrav id BMI 74.8 kg (165 lb) [...] by psychiatry and primary care - see [facility]. 2019 FOB was HIV positive. Pt has [...] by her dad. Pt was born premature. Apple watch alerting pt she has been in Afib since . New cardiovascular symptoms in (ex: tachycardia, palpitations, shortness of breath) and no prior diagnosis of underlying cardiac disease: Afib on Apple watch. Initial work up recommended by [facility] (tailored to the chief complaint): Refer patient to [facility] clinic (second floor [address]) [ ] Place amb consult to IM- write OB cardiac consult with details in comments; also send staff message to Terry SARAVIA UNIVERSITY REGISTRAR STAFF and Yolanda SEGURA STAFF MDs and use dotOBCARIOIMREFER to convey concern [ ] [facility] RN notified to call [facility] and arrange appt for patient within one week [ ] Labs: ProBNP, BMP, magnesium, TSH If above workup is normal, consider: refer to general cardiology or general MFM (AMB CONSULT to Cardiology, or to Maternal Medicine) If any above workup is abnormal- [facility] doc will place MFM referral and also notify [facility] provider(AMB CONSULT to Maternal Medicine, put CVOB [...] by mouth once daily if needed. PNV Cmb#97-Dnea-Brose Acid 14 mg iron- 400 mcg tab [...] Father Heart attack Father 2020 Other Sister COMMERCIAL ACCOUNT MANAGER & urinary issues Other Maternal Grandmother MVA [...] Social History Narrative 10/2017: She graduated from [employer] in June and then went into training in [place] this summer. Lives with partner and 2 [...] has some legal custody. 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 Currently looking to buy a house. Finishing up degree in Criminal Justice. 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 ROS: REVIEW OF SYSTEMS: A comprehensive [...] given to patient at next visit. Discussed InsideTrack brina available for download to smart phone or tablet. --Reviewed topics including diet, exercise, caffeine intake, handling of cat litter, toxic substances, daily vitamins, safe medications, child classes, and regular exams. --Discussed genetic screening options - considering and advised to check coverage. --Discussed care with [facility] and delivery at [facility]. Plan to schedule ultrasound at 8 weeks [...] telephone as well. Originating site: [place] in [place] [facility] start time: 9:44 AM Telephone end [...] Description 09/27/2024 9:00 AM CDT Office Visit [facility] [place] [address] [place] [phone] Evette Cummings PA [address] [place] [address] 09/29/2024 11:30 AM CDT OB Encounter [facility] [facility] [address] [place] [address] Zachary Cuadra MD [address] [place] [address] 10/10/2024 11:30 AM CDT Telemedicine [facility] [address] [place] [address] [place] [address] [place], [place] [phone] Health Maintenance Due Date Last Done Comments HPV series for age 9-26 (2 - 3-dose series) 04/25/2020 03/28/2020 COVID-19 vaccine series ( - 2023- season) 2023 03/02/2023, 05/29/2020 Influenza Vaccine (#1) [...] Routine 06/26/2024 4:32 PM CDT Sore throat COMMERCIAL ACCOUNT MANAGER THIN PREP PAP SCREEN IMAGED Routine 11/06/2022 [...] 08/20/2024 11:31 AM [facility] [address] [address] Narrative 08/20/2024 11:32 AM CDT For Patients: Results are automatically released to your Ship[employer] ([email or web address]) account once available, in compliance with federal [...] a rate of 160 beats per minute. us Dianna Echeverria WELCOME DESK AGENT Final Result * COVID/FLU/RSV PANEL (06/26/2024 5:05 PM CDT) COVID 19 [facility] MOLECULAR Negative Negative 06/26/2024 11:16 PM CDT [facility] Comment:All PCR tests are fletcher bject to false negative result due to variability in viral load and collection technique. A negative result does not rule out a SARS-CoV-2 infection. Clinical correlation required. INFLUENZA A PCR Negative 11:16 PM CDT [facility] INFLUENZA B PCR Negative 11:16 PM CDT [facility] Respiratory Syncytial Virus Negative 06/26/2024 11:16 PM CDT [facility] TRA [facility] Swab NASOPHARYNGEAL SWAB / Unknown Non-Blood / Unknown 06/26/2024 5:05 PM CDT 06/26/2024 5:05 PM CDT Roque Vela MD MICROBIOLOGY Final Resul t [facility] [address] [address], * STREP A PCR (06/26/2024 4:32 PM CDT) Pathologist [facility] GROUP A STREP Negative 06/27/2024 12:19 AM CDT [facility] Throat SPECIMEN FROM THROAT / Unknown Non-Blood / Unknown 06/26/2024 4:32 PM CDT 06/26/2024 4:32 PM CDT Roque Vela MD MICROBIOLOGY Final Resul t Performing Organization Address [facility] Co de Phone Number [facility] [address] [address], [place] * POCT Throat Rapid Strep (06/26/2024 4:32 PM CDT) Pathologist [facility] POC, GROUP A STREP NOT DETECTED NOT DETECTED [facility] Special[facility] ( Comment: The [place] Academy of Pediatrics recommends that a throat culture be performed if a rapid group A streptococcus assay yields a negative result. [facility] recommends Streptococcus, Group A culture. Throat SPECIMEN FROM THROAT / Unknown 06/26/2024 4:32 PM CDT 06/26/2024 4:33 PM CDT Roque Vela MD MICROBIOLOGY Final Resul t Performing Organization Address City/[facility]/ZIP Co de Phone Number [facility] [address] [place] [address], [place] [facility] Special[facility] ( [address] [place] [address] * COMMERCIAL ACCOUNT MANAGER THIN PREP PAP SCREEN IMAGED (11/06/2022 2:15 PM CDT) Case Report Gynecologic Cytology Report Case: [id number] Authorizing Provider: Zachary Cuadra Collected: 11/06/2022 1415 MD Crystal Ordering Location: [facility] Received: 11/06/2022 1520 First Screen: Yasir Warner Specimen: COMMERCIAL ACCOUNT MANAGER ThinPrep Vial Screening, Cervical 11/11/2022 12:52 PM CDT [facility]- ENTRAL LABORATORY INTERPRETATION/ RESULT NEGATIVE FOR INTRAEPITHELIAL LESION OR MALIGNANCY (NIL) (none) 11/11/2022 12:52 PM CDT [facility]- ENTRAL LAB[facility]ATORY at 1252 CDT SPECIMEN ADEQUACY Satisfactory for evaluation Endocervical component present 11/11/2022 12:52 PM CDT [facility]- ENTRAL LABORATORY Date of LMP N/A 11/11/2022 12:52 PM CDT [facility] EN[facility]AL [facility] Last Pap Date N/A 11/11/2022 12:52 PM CDT [facility] ENTRAL LABORATORY Last Pap Result First Pap/Unknown 12:52 PM CDT [facility] EN[facility] Abnormal Pap or [place] Bx in last 5 years No 11/11/2022 12:52 PM CDT [facility] Menstrual Status 11/11/2022 12:52 PM CDT [facility] EN[facility] [place] Bx Done Today No 11/11/2022 12:52 PM CDT [facility] Additional Information None given 11/11/2022 12:52 PM CDT [facility] Comment: Cytology is screened at [facility], Central Laboratory - [address], [place] [address] and [facility] - [address] [place] [address] and [facility] - [address] [place] [address] Interpreted at [facility], Central Laboratory - [address], [place] [address] Automated Review Successful 11/11/2022 12:52 PM CDT [facility] Comment:Specimen processed s uccessfully by automated editor newspaper device, ThinPrep Imaging System, [employer] Note The pap test is a [...] and malignant lesions. 11/11/2022 12:52 PM CDT [facility] ENTRAL LABORATORY Other (Cervical) Non-Blood / Unknown 11/06/2022 2:15 PM CDT 11/06/2022 3:20 PM CDT Zachary Cuadra MD PATHOLOGY/CYTOLO GY Final Result Performing Organization Address City/[facility]/ZIP Co de Phone Number [facility] [address] [place] [address], [place] * LC HCV ANTIBODY RFX TO QUANT PCR (10/23/2022 3:35 PM CDT) [facility] HCV Ab Non Reactive Non Reactive 10/27/2022 11:10 AM CDT [facility] ([facility]) Blood BLOOD SPECIMEN / Unknown Venipuncture / Unknown 10/23/2022 3:35 PM CDT 10/23/2022 3:40 PM CDT Narrative [facility] ([facility]) - 10/27/2022 11:10 AM CDT Performed at: [address] [place] [id number] Component Lab Tech: Dwayne Christopher MD, Phone: [phone] us Mary Esposito NP LABORATORY Final Res ult [facility] (CET) [address] [place] [address], [place] * LC HIV-1/O/2, 4TH GENERATION (10/23/2022 3:35 PM CDT) Pathologist [facility] HIV Scr 4th Gen Non Reactive Non Reactive 10/27/2022 10:06 PM CDT [facility] ([facility]) Comment: HIV Negative HIV-1/HIV-2 antibodies and HIV-1 p24 antigen were NOT detected. There is no laboratory evidence of HIV infection. Blood BLOOD SPECIMEN / Unknown Venipuncture / Unknown 10/23/2022 3:35 PM CDT 10/23/2022 3:40 PM CDT Narrative [facility] ([facility]ET) - 10/27/2022 10:06 PM CDT Performed at: - [facility], [place], [place] [id number] Component Lab Tech: Dwayne Christopher MD, Phone: [phone] us Mary Esposito NP LABORATORY Final Res ult [facility] ([facility]) [facility] [place] [address], from Last 3 Months or Most Recently Relevant to Health Maintenance Insurance [facility] Advance Directives * Full Code (Latest Code Status on File) Date Activated Date Inactivated Comments 04/22/2023 5:47 PM 04/24/2023 5:25 PM Question Answer Comments Code Status Discussion: Not Discussed * Full Code Date Activated Date Inactivated Comments 05/11/2018 11:45 PM 05/14/2018 4:31 PM Care Teams Java Websphere Developer Relationship Specialty Start [place] [address] [place] [address] PCP - General Physician Digital Controls Technical Officer 05/14/20
[2024-09-24] MEDS: ONDANSETRON 2 MG/ML inj 4 MG IVP (14:07)
[2024-09-24 14:08] LABS: Lactate* 1.3 mmol/L (0.5-1.9)
[2024-09-24 14:09] LABS: Hematocrit* 35.0 % (33.0-51.0); Hemoglobin* 12.4 gm/dL (12.0-16.0); Immature Granulocytes Abs Auto 0.02 K/uL (0.00-0.30); Immature Granulocytes Pct Auto 0.2 %; Lymphocytes Absolute Auto 1.50 K/uL (0.90-2.90); Mean Corpuscular HGB Conc 35 gm/dL (32-36); Mean Corpuscular Hemoglobin 30 pg (26-34); Mean Corpuscular Volume 84 fL (80-100); RDW Coefficient of Variation % 12.2 % (11.5-15.5); Red Blood Count* 4.16 m/uL (4.00-5.20); Slide Review Reflex No; White Blood Count* 8.01 K/uL (4.50-11.00)
[2024-09-24 14:22] LABS: Chloride* 108 mmol/L (96-114)
[2024-09-24 14:23] LABS: Potassium* 3.2 mmol/L (3.6-5.1); Sodium* 135 mmol/L (135-149)
[2024-09-24 14:25] LABS: Blood Urea Nitrogen* 5 mg/dL (5-24); Creatinine* 0.7 mg/dL (0.5-1.5); Est. Creatinine Clearance* 110.55; Estimated Glomerular Filt Rate 123 ml/min
[2024-09-24 14:26] LABS: Anion Gap 5 mEq/L (7-15); Calcium* 8.4 mg/dL (8.4-10.6); Carbon Dioxide* 22 mmol/L (20-32); Glucose* 140 mg/dL (60-115)
--- NOTE | 2024-09-24 14:35 | ED.GENADULT ---
HPI - General Adult General Chief complaint: Fever <Lashawn Arango MD - Last Filed: 09/24/24 21:09> Stated complaint: In ER last night, now running a fever <Lashawn Arango MD - Last Filed: 09/24/24 21:09> Time Seen by Provider: 09/24/24 13:35 <Lashawn Arango MD - Last Filed: 09/24/24 21:09> Source: patient <Lashawn Arango MD - Last Filed: 09/24/24 21:09> Mode of arrival: ambulatory <Lashawn Arango MD - Last Filed: 09/24/24 21:09> Limitations: no limitations <Lashawn Arango MD - Last Filed: 09/24/24 21:09> History of Present Illness HPI narrative: 24-year-old female, 14 weeks presenting today with headache, fever photophobia. Patient was seen in the ER yesterday she was diagnosed with a migraine headache. She was get treated with Benadryl and Toradol and did feel better. However she woke up this morning with a temperature of 102.7?. The concern is that her was recently hospitalized with meningitis. Patient states that her headache is still quite severe in the photophobia is quite severe as well. Patient does not have a history of migraine headaches. She states that she feels a mild discomfort in her neck, denies back pain. He denies chest or abdominal pain. She denies cough. She denies pain in her ears or throat. She denies any rashes. Patient states that she had vomiting early her but that she felt significantly better over the last 2 weeks, vomiting started again about 2 days ago. <Lashawn Arango MD - Last Filed: 09/24/24 21:09> Related Data Home medications: Home Medications ?Medication ?Instructions ?Recorded ?Confirmed fluoxetine 20 mg capsule 20 mg PO DAILY 09/23/24 09/23/24 hydroxyzine pamoate 25 mg capsule 25 mg PO Q6-8H PRN 09/23/24 09/23/24 ondansetron HCl 4 mg tablet 4 mg PO Q6-8H PRN 09/23/24 09/23/24 Previous Rx's ?Medication ?Instructions ?Recorded acyclovir 800 mg tablet 800 mg PO 5XD 10 days #50 tabs 09/24/24 <Lashawn Arango MD - Last Filed: 09/24/24 21:09> Allergies/adverse reactions: Allergies Allergy/AdvReac Type Severity Reaction Status Date / Time No Known Drug Allergies Allergy Verified 09/23/24 22:05 <Lashawn Arango MD - Last Filed: 09/24/24 21:09> Review of Systems Status of ROS: Reports: 10 or more systems reviewed and unremarkable except as noted in History and below <Lashawn Arango MD - Last Filed: 09/24/24 21:09> [facility] Social History: Social History Smoking Status: Former smoker How often do you have a drink containing alcohol: never How often do you have six or more drinks on one occasion: Never AUDIT-C Alcohol total score: 0 Non-prescribed substance use: denies use and former substance user <Lashawn Arango MD - Last Filed: 09/24/24 21:09> Exam Narrative: Exam Narrative: Well-nourished well-developed patient in no acute distress. Alert and oriented x3. Answers questions appropriately. Mood and affect are appropriate. Thoughts are goal oriented and rational. No tangential or magical thinking noted. Patient speaks in full sentences without needing to catch her breath. Patient is sitting in the dark room. HEENT: Normocephalic atraumatic. Pupils are equally round reactive to light. Extraocular muscles are intact. Conjunctivae are moist without any icterus noted. Moist mucous membranes. Posterior pharynx is normal. Neck is soft without any lymphadenopathy or thyromegaly. No masses are appreciated. No tenderness to palpation of the cervical spine. No tenderness of the paraspinal musculature. No neck stiffness no meningeal signs. Cardiovascular: Heart is regular rate and rhythm. Lungs: Clear to auscultation bilaterally. Abdomen: Soft and nontender nondistended with normal bowel sounds. Extremities: Bilateral lower extremities are without edema. Skin: Well perfused without any obvious rashes. <Lashawn Arango MD - Last Filed: 09/24/24 21:09> Const: Vital Signs, click to edit/add: Vital Signs - 24 hr 09/24/24 13:27 09/24/24 16:50 09/24/24 18:30 Temperature 98.2 F 100.0 F H 99.5 F Pulse Rate Pulse Rate [Pulse Oximeter] 103 H 85 87 Respiratory Rate 18 16 16 Blood Pressure Blood Pressure [Ri ght Upper Arm] 117/65 117/70 115/67 Pulse Oximetry 97 99 96 Oxygen Delivery Me thod Room Air Room Air Room Air 09/24/24 18:33 09/24/24 19:01 09/24/24 19:34 Temperature Pulse Rate 96 94 83 Pulse Rate [Pulse Oximeter] Respiratory Rate Blood Pressure 115/67 110/64 93/45 L Blood Pressure [Ri ght Upper Arm] Pulse Oximetry 97 97 97 Oxygen Delivery Me thod 09/24/24 20:01 09/24/24 20:02 09/24/24 20:15 Temperature Pulse Rate 69 67 74 Pulse Rate [Pulse Oximeter] Respiratory Rate Blood Pressure 93/46 L Blood Pressure [Ri ght Upper Arm] Pulse Oximetry 97 97 97 Oxygen Delivery Me thod 09/24/24 20:20 09/24/24 20:20 09/24/24 20:22 Temperature 98.1 F 98.1 F Pulse Rate 69 Pulse Rate [Pulse Oximeter] Respiratory Rate 20 Blood Pressure 112/60 Blood Pressure [Ri ght Upper Arm] Pulse Oximetry 96 Oxygen Delivery Me thod 09/24/24 20:30 09/24/24 21:01 09/24/24 21:30 Temperature Pulse Rate 64 61 61 Pulse Rate [Pulse Oximeter] Respiratory Rate Blood Pressure 114/67 Blood Pressure [Ri ght Upper Arm] Pulse Oximetry 96 98 99 Oxygen Delivery Me thod 09/24/24 22:02 Temperature Pulse Rate 68 Pulse Rate [Pulse Oximeter] Respiratory Rate Blood Pressure 102/49 L Blood Pressure [Ri ght Upper Arm] Pulse Oximetry 100 Oxygen Delivery Me thod <Lashawn Arango MD - Last Filed: 09/24/24 21:09> Vital Signs, click to edit/add: Vital Signs - 24 hr 09/24/24 13:27 09/24/24 16:50 09/24/24 18:30 Temperature 98.2 F 100.0 F H 99.5 F Pulse Rate Pulse Rate [Pulse Oximeter] 103 H 85 87 Respiratory Rate 18 16 16 Blood Pressure Blood Pressure [Ri ght Upper Arm] 117/65 117/70 115/67 Pulse Oximetry 97 99 96 Oxygen Delivery Me thod Room Air Room Air Room Air 09/24/24 18:33 09/24/24 19:01 09/24/24 19:34 Temperature Pulse Rate 96 94 83 Pulse Rate [Pulse Oximeter] Respiratory Rate Blood Pressure 115/67 110/64 93/45 L Blood Pressure [Ri ght Upper Arm] Pulse Oximetry 97 97 97 Oxygen Delivery Me thod 09/24/24 20:01 09/24/24 20:02 09/24/24 20:15 Temperature Pulse Rate 69 67 74 Pulse Rate [Pulse Oximeter] Respiratory Rate Blood Pressure 93/46 L Blood Pressure [Ri ght Upper Arm] Pulse Oximetry 97 97 97 Oxygen Delivery Me thod 09/24/24 20:20 09/24/24 20:20 09/24/24 20:22 Temperature 98.1 F 98.1 F Pulse Rate 69 Pulse Rate [Pulse Oximeter] Respiratory Rate 20 Blood Pressure 112/60 Blood Pressure [Ri ght Upper Arm] Pulse Oximetry 96 Oxygen Delivery Me thod 09/24/24 20:30 09/24/24 21:01 09/24/24 21:30 Temperature Pulse Rate 64 61 61 Pulse Rate [Pulse Oximeter] Respiratory Rate Blood Pressure 114/67 Blood Pressure [Ri ght Upper Arm] Pulse Oximetry 96 98 99 Oxygen Delivery Me thod 09/24/24 22:02 Temperature Pulse Rate 68 Pulse Rate [Pulse Oximeter] Respiratory Rate Blood Pressure 102/49 L Blood Pressure [Ri ght Upper Arm] Pulse Oximetry 100 Oxygen Delivery Me thod <Augustin Guerrero MD - Last Filed: 09/28/24 11:08> Course Course ED Course: Upon arrival she received Tylenol which did not seem to help a lot. Blood work is unremarkable. Chest x-ray, read by me, was unremarkable. Patient has mild hypokalemia with potassium 3.2. Normal lactate, CRP and no elevated white cell count. Swabs negative for COVID, influenza. Normal procalcitonin. Patient was having significant discomfort so she received hydrocodone which did help with the headache. We did proceed with a lumbar puncture which did have 219 wbc's. Lumbar puncture is abnormal-not consistent with bacterial meningitis. Concerning for viral meningitis. Consulted with Dr. Still recommended treatment for viral meningitis at this time with one IV dose of acyclovir and then oral dosing in the outpatient setting. Did consult with Dr. Bejarano also who agreed with our treatment plans. Discussed doing head CT which I think would be very important at this time given the amount of pain that the patient is in. Using joint decision making we did go ahead and decide to proceed with that. Head CT was unremarkable. We did order a viral cultures as well as meningitis/encephalitis panel which will be a send out lab test. Patient was quite concerned about the baby's well-being and requested in evaluation of the baby at this time. Therefore an obstetrical ultrasound was ordered. <Lashawn Arango MD - Last Filed: 09/24/24 21:09> Upon arrival she received Tylenol which did not seem to help a lot. Blood work is unremarkable. Chest x-ray, read by me, was unremarkable. Patient has mild hypokalemia with potassium 3.2. Normal lactate, CRP and no elevated white cell count. Swabs negative for COVID, influenza. Normal procalcitonin. Patient was having significant discomfort so she received hydrocodone which did help with the headache. We did proceed with a lumbar puncture which did have 219 wbc's. Lumbar puncture is abnormal-not consistent with bacterial meningitis. Concerning for viral meningitis. Consulted with Dr. Still recommended treatment for viral meningitis at this time with one IV dose of acyclovir and then oral dosing in the outpatient setting. Did consult with Dr. Bejarano also who agreed with our treatment plans. Discussed doing head CT which I think would be very important at this time given the amount of pain that the patient is in. Using joint decision making we did go ahead and decide to proceed with that. Head CT was unremarkable. We did order a viral cultures as well as meningitis/encephalitis panel which will be a send out lab test. Patient was quite concerned about the baby's well-being and requested in evaluation of the baby at this time. Therefore an obstetrical ultrasound was ordered. Cesar -- inherited this patient at change of shift pending results of ultrasound. Discussed with cdl team truck driver this reassuring ultrasound. Went to discuss with Naomi. She still has some headache but is a little improved and would be relieved to return home at this point. <Augustin Guerrero MD - Last Filed: 09/28/24 11:08> Vital Signs Vital signs: Initial Vital Signs Temperature 98.2 F 09/24/24 13:27 Temperature Source Temporal Artery Scan 09/24/24 13:27 Pulse Rate 103 H 09/24/24 13:27 Respiratory Rate 18 09/24/24 13:27 Blood Pressure 117/65 09/24/24 13:27 Blood Pressure Mean 82 09/24/24 13:27 Blood Pressure Position Sitting 09/24/24 13:27 Pulse Oximetry 97 09/24/24 13:27 Oxygen Delivery Method Room Air 09/24/24 13:27 Vital Signs Temperature 98.2 F 09/24/24 13:27 Pulse Rate 103 H 09/24/24 13:27 Respiratory Rate 18 09/24/24 13:27 Blood Pressure 117/65 09/24/24 13:27 Pulse Oximetry 97 09/24/24 13:27 Oxygen Delivery Method Room Air 09/24/24 13:27 Temperature 98.1 F 09/24/24 20:20 Pulse Rate 68 09/24/24 22:02 Respiratory Rate 20 09/24/24 20:22 Blood Pressure 102/49 L 09/24/24 22:02 Pulse Oximetry 100 09/24/24 22:02 Oxygen Delivery Method Room Air 09/24/24 18:30 <Lashawn Arango MD - Last Filed: 09/24/24 21:09> Initial Vital Signs Temperature 98.2 F 09/24/24 13:27 Temperature Source Temporal Artery Scan 09/24/24 13:27 Pulse Rate 103 H 09/24/24 13:27 Respiratory Rate 18 09/24/24 13:27 Blood Pressure 117/65 09/24/24 13:27 Blood Pressure Mean 82 09/24/24 13:27 Blood Pressure Position Sitting 09/24/24 13:27 Pulse Oximetry 97 09/24/24 13:27 Oxygen Delivery Method Room Air 09/24/24 13:27 Vital Signs Temperature 98.2 F 09/24/24 13:27 Pulse Rate 103 H 09/24/24 13:27 Respiratory Rate 18 09/24/24 13:27 Blood Pressure 117/65 09/24/24 13:27 Pulse Oximetry 97 09/24/24 13:27 Oxygen Delivery Method Room Air 09/24/24 13:27 Temperature 98.1 F 09/24/24 20:20 Pulse Rate 68 09/24/24 22:02 Respiratory Rate 20 09/24/24 20:22 Blood Pressure 102/49 L 09/24/24 22:02 Pulse Oximetry 100 09/24/24 22:02 Oxygen Delivery Method Room Air 09/24/24 18:30 <Augustin Guerrero MD - Last Filed: 09/28/24 11:08> Medications Administered Medications: Discontinued Medications Generic Name Dose Route Start Last Admin Trade Name Jil PRN Reason Stop Dose Admin Acetaminophen 1,000 mg 09/24/24 16:55 09/24/24 17:01 Acetaminophen 500 Mg Tablet PO 09/24/24 16:56 1,000 mg ONCE ONE Administration Hydrocodone Bitart/Acetaminophen 1 tab 09/24/24 18:28 09/24/24 18:37 Hydrocodone-Acetamin 5-325 Mg 1 Tab PO 09/24/24 18:29 1 tab ONCE ONE Administration Acyclovir 800 mg 09/24/24 20:55 09/24/24 22:11 Acyclovir 200 Mg Capsule PO 09/24/24 20:56 800 mg ONCE ONE Administration Sodium Chloride 1,000 mls @ 1,000 mls/hr 09/24/24 19:15 09/24/24 21:07 0.9 % Sodium Chloride 1000 Ml IV 09/24/24 20:14 Infused .Q1H AMBER Infusion Acyclovir Sodium 750 mg/ 115 mls @ 115 mls/hr 09/24/24 20:41 09/24/24 22:10 Sodium Chloride IVPB 09/24/24 20:42 Infused ONCE ONE Infusion Ondansetron HCl 4 mg 09/24/24 13:56 09/24/24 14:07 Ondansetron 2 Mg/Ml Inj IVP 09/24/24 13:57 4 mg ONCE ONE Administration <Lashawn Arango MD - Last Filed: 09/24/24 21:09> Discontinued Medications Generic Name Dose Route Start Last Admin Trade Name Freq PRN Reason Stop Dose Admin Acetaminophen 1,000 mg 09/24/24 16:55 09/24/24 17:01 Acetaminophen 500 Mg Tablet PO 09/24/24 16:56 1,000 mg ONCE ONE Administration Hydrocodone Bitart/Acetaminophen 1 tab 09/24/24 18:28 09/24/24 18:37 Hydrocodone-Acetamin 5-325 Mg 1 Tab PO 09/24/24 18:29 1 tab ONCE ONE Administration Acyclovir 800 mg 09/24/24 20:55 09/24/24 22:11 Acyclovir 200 Mg Capsule PO 09/24/24 20:56 800 mg ONCE ONE Administration Sodium Chloride 1,000 mls @ 1,000 mls/hr 09/24/24 19:15 09/24/24 21:07 0.9 % Sodium Chloride 1000 Ml IV 09/24/24 20:14 Infused .Q1H AMBER Infusion Acyclovir Sodium 750 mg/ 115 mls @ 115 mls/hr 09/24/24 20:41 09/24/24 22:10 Sodium Chloride IVPB 09/24/24 20:42 Infused ONCE ONE Infusion Ondansetron HCl 4 mg 09/24/24 13:56 09/24/24 14:07 Ondansetron 2 Mg/Ml Inj IVP 09/24/24 13:57 4 mg ONCE ONE Administration <Augustin Guerrero MD - Last Filed: 09/28/24 11:08> Medical Decision Making MDM Narrative Medical decision making narrative: 24-year-old female with new onset migraine headaches, photophobia and fever concerning for viral meningitis. Lumbar tap and labs both not consistent with bacterial meningitis. Patient will be discharged at this time with a acyclovir and [place]. Follow up within 24 hours is recommended. CSF cultures pending. <Lashawn Arango MD - Last Filed: 09/24/24 21:09> 24-year-old female with new onset migraine headaches, photophobia and fever concerning for viral meningitis. Lumbar tap and labs both not consistent with bacterial meningitis. Patient will be discharged at this time with a acyclovir and [place]. Follow up within 24 hours is recommended. CSF cultures pending. Requested ultrasound for reassurance of Discussed results with cdl team truck driver noted to be normal. Radiology over-read below INDICATION: Concern for viability in the context of maternal viral meningitis. COMPARISON: None. TECHNIQUE: Focused transabdominal sonography was performed. FINDINGS: Please note that this is a focused sonographic examination and does not constitute a anatomic evaluation of the fetus. There is a single intrauterine with a crown-rump length of 8.1 centimeters corresponding to a estimated gestational age of 14 weeks and 0 days. There is detectable cardiac activity with a heart rate of 165 beats per minute. The placenta is located posteriorly. The ovaries were not sonographically visualized. IMPRESSION: Single intrauterine with detectable cardiac activity. Estimated gestational age of 14 weeks and 0 days. The ovaries were not sonographically visualized. Dictated by Sunil Jeronimo MD @ 09/24/2024 10:22:32 PM <Augustin Guerrero MD - Last Filed: 09/28/24 11:08> Medical Records Medical records reviewed: Yes I reviewed the patient's medical records <Lashawn Arango MD - Last Filed: 09/24/24 21:09> Lab Data Lab results reviewed: Yes I reviewed the patient's lab results <Lashawn Arango MD - Last Filed: 09/24/24 21:09> Labs: Lab Results 09/24/24 09/24/24 09/24/24 Range/Units 14:00 14:50 16:36 WBC 8.01 (4.50-11.00) K/uL RBC 4.16 (4.00-5.20) m/uL Hgb 12.4 (12.0-16.0) gm/dL Hct 35.0 (33.0-51.0) % MCV 84 (80-100) fL MCH 30 (26-34) pg MCHC 35 (32-36) gm/dL RDW Coeff of [place] 12.2 (11.5-15.5) % Plt Count 203 (140-440) K/uL Neut % (Auto) 75.9 H (42.0-72.0) % Lymph % (Auto) 18.2 L (20-44) % Story % (Auto) 5.1 (0.0-11.0) % Eos % (Auto) 0.2 (0.0-7.0) % Baso % (Auto) 0.4 (0.0-3.0) % Neut # (Auto) 6.10 (1.7-7.0) K/uL Lymph # (Auto) 1.50 (0.90-2.90) K/uL Story # (Auto) 0.40 (0.00-0.90) K/UL Eos # (Auto) 0.02 (0.00-0.50) K/uL Baso # (Auto) 0.03 (0.00-0.30) K/uL Abs Immat Gran (auto) 0.02 (0.00-0.30) K/uL Imm/Tot Granulo (auto) 0.2 % Sodium 135 (135-149) mmol/L Potassium 3.2 L (3.6-5.1) mmol/L Chloride 108 (96-114) mmol/L Carbon Dioxide 22 (20-32) mmol/L Anion Gap 5 L (7-15) mEq/L BUN 5 (5-24) mg/dL Creatinine 0.7 (0.5-1.5) mg/dL Estimated Creat Clear 110.55 Estimated GFR 123 ml/min Glucose 140 H (60-115) mg/dL Lactate 1.3 (0.5-1.9) mmol/L Calcium 8.4 (8.4-10.6) mg/dL C-Reactive Protein < 0.5 L (0.5-1.0) mg/dL Procalcitonin 0.05 (<0.50) ng/mL Urine Color (Yellow) Urine Appearance (Clear) Urine pH (5.0-8.5) Ur Specific [place] (1.000-1.030) Urine Protein (Negative) Urine Glucose (UA) (Negative) Urine Ketones (Negative) Urine Blood (Negative) Urine Nitrite (Negative) Urine Bilirubin (Negative) Urine Urobilinogen (0.2-1.0) Ur Leukocyte Esterase (Negative) Urine RBC (0-2) Urine WBC (0-5) Ur Squamous Epith Cells (None-Few) Urine Bacteria (None) CSF Volume 3.5 (0-6) mL CSF Appearance Clear (Clear) CSF Color Colorless (Colorless) CSF WBC 219 Cells/uL CSF RBC 0 Cells/uL CSF Mononuclear Cells 76 % CSF Polynuclear WBCs 24 % CSF Glucose 74 H (40-70) mg/dL CSF Total Protein 46 H (15-45) mg/dL A. phagocytophilum DNA Not Detected Babesia Species (PCR) Not Detected Lyme Disease Antibody 0.29 (<=0.90) IV SARS-CoV-2 (PCR) Negative SARS-CoV-2 (Negative) E.ewingii/canis DNA PCR Not Detected E. muris-like DNA (PCR) Not Detected Influenza Type A (PCR) Negative PCR FLU A (Negative) Influenza Type B (PCR) Negative PCR FLU B (Negative) Babesia microti (PCR) Not Detected E. chaffeensis (PCR) Not Detected Lab Acknowledgement 07/27/25 07/27/25 Range/Units 18:15 20:12 WBC (4.50-11.00) K/uL RBC (4.00-5.20) m/uL Hgb (12.0-16.0) gm/dL Hct (33.0-51.0) % MCV (80-100) fL MCH (26-34) pg MCHC (32-36) gm/dL RDW Coeff of [place] (11.5-15.5) % Plt Count (140-440) K/uL Neut % (Auto) (42.0-72.0) % Lymph % (Auto) (20-44) % Story % (Auto) (0.0-11.0) % Eos % (Auto) (0.0-7.0) % Baso % (Auto) (0.0-3.0) % Neut # (Auto) (1.7-7.0) K/uL Lymph # (Auto) (0.90-2.90) K/uL Story # (Auto) (0.00-0.90) K/UL Eos # (Auto) (0.00-0.50) K/uL Baso # (Auto) (0.00-0.30) K/uL Abs Immat Gran (auto) (0.00-0.30) K/uL Imm/Tot Granulo (auto) % Sodium (135-149) mmol/L Potassium (3.6-5.1) mmol/L Chloride (96-114) mmol/L Carbon Dioxide (20-32) mmol/L Anion Gap (7-15) mEq/L BUN (5-24) mg/dL Creatinine (0.5-1.5) mg/dL Estimated Creat Clear Estimated GFR ml/min Glucose (60-115) mg/dL Lactate (0.5-1.9) mmol/L Calcium (8.4-10.6) mg/dL C-Reactive Protein (0.5-1.0) mg/dL Procalcitonin (<0.50) ng/mL Urine Color Yellow (Yellow) Urine Appearance Clear (Clear) Urine pH 8.5 (5.0-8.5) Ur Specific [place] 1.020 (1.000-1.030) Urine Protein Negative (Negative) Urine Glucose (UA) Negative (Negative) Urine Ketones Negative (Negative) Urine Blood Negative (Negative) Urine Nitrite Negative (Negative) Urine Bilirubin Negative (Negative) Urine Urobilinogen 0.2 (0.2-1.0) Ur Leukocyte Esterase Negative (Negative) Urine RBC 0-2 (0-2) Urine WBC 5-10 A (0-5) Ur Squamous Epith Cells None (None-Few) Urine Bacteria Few A (None) CSF Volume (0-6) mL CSF Appearance (Clear) CSF Color (Colorless) CSF WBC Cells/uL CSF RBC Cells/uL CSF Mononuclear Cells % CSF Polynuclear WBCs % CSF Glucose (40-70) mg/dL CSF Total Protein (15-45) mg/dL A. phagocytophilum DNA Babesia Species (PCR) Lyme Disease Antibody (<=0.90) IV SARS-CoV-2 (PCR) (Negative) E.ewingii/canis DNA PCR E. muris-like DNA (PCR) Influenza Type A (PCR) (Negative) Influenza Type B (PCR) (Negative) Babesia microti (PCR) E. chaffeensis (PCR) Lab Acknowledgement Test Added <Lashawn Arango MD - Last Filed: 09/24/24 21:09> Lab Results 09/24/24 09/24/24 09/24/24 Range/Units 14:00 14:50 16:36 WBC 8.01 (4.50-11.00) K/uL RBC 4.16 (4.00-5.20) m/uL Hgb 12.4 (12.0-16.0) gm/dL Hct 35.0 (33.0-51.0) % MCV 84 (80-100) fL MCH 30 (26-34) pg MCHC 35 (32-36) gm/dL RDW Coeff of [place] 12.2 (11.5-15.5) % Plt Count 203 (140-440) K/uL Neut % (Auto) 75.9 H (42.0-72.0) % Lymph % (Auto) 18.2 L (20-44) % Story % (Auto) 5.1 (0.0-11.0) % Eos % (Auto) 0.2 (0.0-7.0) % Baso % (Auto) 0.4 (0.0-3.0) % Neut # (Auto) 6.10 (1.7-7.0) K/uL Lymph # (Auto) 1.50 (0.90-2.90) K/uL Story # (Auto) 0.40 (0.00-0.90) K/UL Eos # (Auto) 0.02 (0.00-0.50) K/uL Baso # (Auto) 0.03 (0.00-0.30) K/uL Abs Immat Gran (auto) 0.02 (0.00-0.30) K/uL Imm/Tot Granulo (auto) 0.2 % Sodium 135 (135-149) mmol/L Potassium 3.2 L (3.6-5.1) mmol/L Chloride 108 (96-114) mmol/L Carbon Dioxide 22 (20-32) mmol/L Anion Gap 5 L (7-15) mEq/L BUN 5 (5-24) mg/dL Creatinine 0.7 (0.5-1.5) mg/dL Estimated Creat Clear 110.55 Estimated GFR 123 ml/min Glucose 140 H (60-115) mg/dL Lactate 1.3 (0.5-1.9) mmol/L Calcium 8.4 (8.4-10.6) mg/dL C-Reactive Protein < 0.5 L (0.5-1.0) mg/dL Procalcitonin 0.05 (<0.50) ng/mL Urine Color (Yellow) Urine Appearance (Clear) Urine pH (5.0-8.5) Ur Specific [place] (1.000-1.030) Urine Protein (Negative) Urine Glucose (UA) (Negative) Urine Ketones (Negative) Urine Blood (Negative) Urine Nitrite (Negative) Urine Bilirubin (Negative) Urine Urobilinogen (0.2-1.0) Ur Leukocyte Esterase (Negative) Urine RBC (0-2) Urine WBC (0-5) Ur Squamous Epith Cells (None-Few) Urine Bacteria (None) CSF Volume 3.5 (0-6) mL CSF Appearance Clear (Clear) CSF Color Colorless (Colorless) CSF WBC 219 Cells/uL CSF RBC 0 Cells/uL CSF Mononuclear Cells 76 % CSF Polynuclear WBCs 24 % CSF Glucose 74 H (40-70) mg/dL CSF Total Protein 46 H (15-45) mg/dL A. phagocytophilum DNA Not Detected Babesia Species (PCR) Not Detected Lyme Disease Antibody 0.29 (<=0.90) IV SARS-CoV-2 (PCR) Negative SARS-CoV-2 (Negative) E.ewingii/canis DNA PCR Not Detected E. muris-like DNA (PCR) Not Detected Influenza Type A (PCR) Negative PCR FLU A (Negative) Influenza Type B (PCR) Negative PCR FLU B (Negative) Babesia microti (PCR) Not Detected E. chaffeensis (PCR) Not Detected Lab Acknowledgement 09/24/24 09/24/24 Range/Units 18:15 20:12 WBC (4.50-11.00) K/uL RBC (4.00-5.20) m/uL Hgb (12.0-16.0) gm/dL Hct (33.0-51.0) % MCV (80-100) fL MCH (26-34) pg MCHC (32-36) gm/dL RDW Coeff of [place] (11.5-15.5) % Plt Count (140-440) K/uL Neut % (Auto) (42.0-72.0) % Lymph % (Auto) (20-44) % Story % (Auto) (0.0-11.0) % Eos % (Auto) (0.0-7.0) % Baso % (Auto) (0.0-3.0) % Neut # (Auto) (1.7-7.0) K/uL Lymph # (Auto) (0.90-2.90) K/uL Story # (Auto) (0.00-0.90) K/UL Eos # (Auto) (0.00-0.50) K/uL Baso # (Auto) (0.00-0.30) K/uL Abs Immat Gran (auto) (0.00-0.30) K/uL Imm/Tot Granulo (auto) % Sodium (135-149) mmol/L Potassium (3.6-5.1) mmol/L Chloride (96-114) mmol/L Carbon Dioxide (20-32) mmol/L Anion Gap (7-15) mEq/L BUN (5-24) mg/dL Creatinine (0.5-1.5) mg/dL Estimated Creat Clear Estimated GFR ml/min Glucose (60-115) mg/dL Lactate (0.5-1.9) mmol/L Calcium (8.4-10.6) mg/dL C-Reactive Protein (0.5-1.0) mg/dL Procalcitonin (<0.50) ng/mL Urine Color Yellow (Yellow) Urine Appearance Clear (Clear) Urine pH 8.5 (5.0-8.5) Ur Specific [place] 1.020 (1.000-1.030) Urine Protein Negative (Negative) Urine Glucose (UA) Negative (Negative) Urine Ketones Negative (Negative) Urine Blood Negative (Negative) Urine Nitrite Negative (Negative) Urine Bilirubin Negative (Negative) Urine Urobilinogen 0.2 (0.2-1.0) Ur Leukocyte Esterase Negative (Negative) Urine RBC 0-2 (0-2) Urine WBC 5-10 A (0-5) Ur Squamous Epith Cells None (None-Few) Urine Bacteria Few A (None) CSF Volume (0-6) mL CSF Appearance (Clear) CSF Color (Colorless) CSF WBC Cells/uL CSF RBC Cells/uL CSF Mononuclear Cells % CSF Polynuclear WBCs % CSF Glucose (40-70) mg/dL CSF Total Protein (15-45) mg/dL A. phagocytophilum DNA Babesia Species (PCR) Lyme Disease Antibody (<=0.90) IV SARS-CoV-2 (PCR) (Negative) E.ewingii/canis DNA PCR E. muris-like DNA (PCR) Influenza Type A (PCR) (Negative) Influenza Type B (PCR) (Negative) Babesia microti (PCR) E. chaffeensis (PCR) Lab Acknowledgement Test Added <Augustin Guerrero MD - Last Filed: 09/28/24 11:08> Imaging Data Chest x-ray: Attestation: I have reviewed the pertinent imaging results. <Lashawn Arango MD - Last Filed: 09/24/24 21:09> Radiologist's impression: FINDINGS: PA and lateral chest x-rays show a normal cardiac silhouette. The lungs show no focal pulmonary opacities. Sharp pleural margins. No pneumothorax. IMPRESSION: No focal pulmonary opacities. No pneumothorax. <Lashawn Arango MD - Last Filed: 09/24/24 21:09> CT scan - head: Attestation: I have reviewed the pertinent imaging results. <Lashawn Arango MD - Last Filed: 09/24/24 21:09> Radiologist's impression: TECHNIQUE: Multiplanar CT examination of the head was performed without the use of intravenous contrast. INDICATION: Headache. COMPARISON: None. FINDINGS: No loss of adame-white differentiation to suggest recent territorial infarct. No intracranial hemorrhage, abnormal extra-axial fluid collection, hydrocephalus or midline shift. The ventricles and cerebral sulci are normal in caliber. The basal cisterns are patent. The paranasal sinuses and mastoid air cells remain clear. The orbits and calvarium are unremarkable. The cerebellar tonsils are normal position. IMPRESSION: No acute intracranial findings. <Lashawn Arango MD - Last Filed: 09/24/24 21:09> Discharge Plan Discharge Clinical Impression: Migraine, Fever of unknown origin, Photophobia, Unspecified viral meningitis <Lashawn Arango MD - Last Filed: 09/24/24 21:09> Patient Disposition: Home, Self-Care <Lashawn Arango MD - Last Filed: 09/24/24 21:09> Condition: Stable <Lashawn Arango MD - Last Filed: 09/24/24 21:09> Additional Instructions: Your symptoms are concerning for viral meningitis. You will be started on acyclovir. You received 1 dose IV in the ED and you will continue with oral tablets 5 times per day for the next 10 days or until cultures come back negative. You will need to follow-up with your glaze grinder or primary care provider in the next 24 hours. Call them thing Wednesday morning to set up a follow-up appointment for tomorrow. Return to the ER if your symptoms get worse. 8 tablets of [place] sent to [facility]. I will call you if Radiology has anything more to say about your ultrasound <Lashawn Arango MD - Last Filed: 09/24/24 21:09> Prescriptions: New acyclovir 800 mg tablet 800 mg PO 5XD 10 Days Qty: 50 0RF Rx Instructions: space evenly during waking hours No Action fluoxetine 20 mg capsule 20 mg PO DAILY hydroxyzine pamoate 25 mg capsule 25 mg PO Q6-8H PRN ondansetron HCl 4 mg tablet 4 mg PO Q6-8H PRN <Lashawn Arango MD - Last Filed: 09/24/24 21:09> Follow Up/Referrals: Luis Miguel Livingston PA-C [Primary Care Provider, Family Practice] <Lashawn Arango MD - Last Filed: 09/24/24 21:09> Stand Alone Forms: MyHealth Info Instructions <Lashawn Arango MD - Last Filed: 09/24/24 21:09>
[2024-09-24 15:40] LABS: PCR FLU A Negative PCR FLU A (Negative); PCR FLU B Negative PCR FLU B (Negative); SARS PCR* Negative SARS-CoV-2 (Negative)
--- NOTE | 2024-09-24 16:36 | P.ANES_ITS ---
Anesthesia Charges Start Date/Time Anesthesia Start Date: 09/24/24 Anesthesia Start Time: 16:20 Stop Date/Time Anesthesia Stop Date: 09/24/24 Anesthesia Stop Time: 16:35 Coding CPT Codes CPT Codes: ANESTH LUMBAR PUNCTURE - 42693 ([id number]) P2 - PATIENT W/MILD SYST DISEASE, QZ - BILL HIKER SVC W/O MACHINE STAKER BY
--- NOTE | 2024-09-24 16:36 | W.ANESCHARGE ---
Anesthesia Charges Start Date/Time Anesthesia Start Date: 09/24/24 Anesthesia Start Time: 16:20 Stop Date/Time Anesthesia Stop Date: 09/24/24 Anesthesia Stop Time: 16:35 Coding CPT Codes CPT Codes: ANESTH LUMBAR PUNCTURE - 38582 ([id number]) P2 - PATIENT W/MILD SYST DISEASE, QZ - STATIONARY ENGINEER SVC W/O DEMAND PLANNING MANAGER BY
[2024-09-24 16:55] LABS: CSF Polynuclear Cells 24 %; RBC, CSF 0 Cells/uL; WBC, CSF 219 Cells/uL
[2024-09-24] MEDS: ACETAMINOPHEN 500 MG TABLET 1000 MG PO (17:01)
[2024-09-24 17:10] LABS: Glucose, CSF* 74 mg/dL (40-70)
--- NOTE | 2024-09-24 17:22 | CRLHL7_ITS ---
For Patients: As a result of the Cures Act, medical imaging exams and procedure reports are released immediately into your electronic medical record. You may view this report before your referring provider. If you have questions, please contact your health care provider. INDICATION: Fever. FINDINGS: PA and lateral chest x-rays show a normal cardiac silhouette. The lungs show no focal pulmonary opacities. Sharp pleural margins. No pneumothorax. IMPRESSION: No focal pulmonary opacities. No pneumothorax. Dictated by Jag Pedroza MD @ 09/24/2024 6:28:21 PM Dictated by: Jag Pedroza MD @ 09/24/2024 18:28:31 (Electronically Signed)
[2024-09-24 18:24] LABS: Total Volume 3.5 mL (0-6)
[2024-09-24 18:36] LABS: Appearance Urine Clear (Clear)
[2024-09-24] MEDS: HYDROCODONE-ACETAMIN 5-325 MG 1 TAB PO (18:37)
--- NOTE | 2024-09-24 19:11 | CRLHL7_ITS ---
For Patients: As a result of the Century Cures Act, medical imaging exams and procedure reports are released immediately into your electronic medical record. You may view this report before your referring provider. If you have questions, please contact your health care provider. TECHNIQUE: Multiplanar CT examination of the head was performed without the use of intravenous contrast. INDICATION: Headache. COMPARISON: None. FINDINGS: No loss of adame-white differentiation to suggest recent territorial infarct. No intracranial hemorrhage, abnormal extra-axial fluid collection, hydrocephalus or midline shift. The ventricles and cerebral sulci are normal in caliber. The basal cisterns are patent. The paranasal sinuses and mastoid air cells remain clear. The orbits and calvarium are unremarkable. The cerebellar tonsils are normal position. IMPRESSION: No acute intracranial findings. Please note that all CT scans at this facility use dose modulation, iterative reconstruction, and/or weight-based dosing when appropriate to reduce radiation dose to as low as reasonably achievable. Dictated by Kulwinder Bejarano MD @ 09/24/2024 8:23:38 PM (Electronically Signed)
--- NOTE | 2024-09-24 20:51 | CRLHL7_ITS ---
For Patients: As a result of the Cures Act, medical imaging exams and procedure reports are released immediately into your electronic medical record. You may view this report before your referring provider. If you have questions, please contact your health care provider. INDICATION: Concern for viability in the context of maternal viral meningitis. COMPARISON: None. TECHNIQUE: Focused transabdominal sonography was performed. FINDINGS: Please note that this is a focused sonographic examination and does not constitute a anatomic evaluation of the fetus. There is a single intrauterine with a crown-rump length of 8.1 centimeters corresponding to a estimated gestational age of 14 weeks and 0 days. There is detectable cardiac activity with a heart rate of 165 beats per minute. The placenta is located posteriorly. The ovaries were not sonographically visualized. IMPRESSION: Single intrauterine with detectable cardiac activity. Estimated gestational age of 14 weeks and 0 days. The ovaries were not sonographically visualized. Dictated by Sunil Jeronimo MD @ 09/24/2024 10:22:32 PM (Electronically Signed)
[2024-09-24 20:57] LABS: Procalcitonin* 0.05 ng/mL (<0.50)
[2024-09-24] MEDS: SODIUM CHLORIDE 0.9% IVPB (21:06)
[2024-09-24] MEDS: ACYCLOVIR SODIUM IVPB (21:06)
[2024-09-24] MEDS: ACYCLOVIR 200 MG CAPSULE 800 MG PO (22:11)
[2024-09-26 15:51] LABS: Lyme ELISA Reflex 0.29 IV (<=0.90)
[2024-09-27 11:52] LABS: Anaplasma phagocyt PCR Not Detected
== END 2024-09-24 22:34 | disposition home or self-care (01) ==
PROVIDERS: Emergency Provider Family Medicine; PCP Physician Assistant Medical
DX: G43.909 Migraine, unspecified, not intractable, without status migrainosus (principal); H53.143 Visual discomfort, bilateral; A87.9 Viral meningitis, unspecified; R50.9 Fever, unspecified
CPT/HCPCS: 62270; 00635; 36415; 70450; 71046; 76815; 80048; 81001; 82945; 83605; 84145; 84157; 85025; 86140; 86618; 87040; 87070; 87086; 87205; 87252; 87253; 87468; 87469; 87483; 87484; 87631; 87798; 89051; 96374; 99285; A9270; J0133; J2405; J7030